=== PATIENT | female | born 2000 | race Two or more races ===

== ENCOUNTER 2020-12-31 12:30 | Inpatient (IN) | payer OTHER ==
[~2020-12-31] VITALS: Ht 162.6 cm; Wt 104.3 kg
[2021-01-09] MEDS ORDERED: IRON325 MG PO (22:37)
[2021-01-09] MEDS ORDERED: PRENATAL TABLE1 EAC1 PO (22:37)
[2021-01-09] MEDS ORDERED: TYLENOL325 MG PO (22:38)
== END 2021-01-23 15:43 | disposition home or self-care (01) | DRG 807 ==
LOC: SURH 01-16 12:30 → OB/GYN 01-21 06:05 → LDR 01-21 06:05 → OB/GYN 01-21 17:04
PROVIDERS: ADMIT Specialist; ATTEND Specialist
PROC: 10E0XZZ Delivery of Products of Conception, External Approach (ICD-10-PCS; principal; 2021-01-21)
PROC: 0W8NXZZ Division of Female Perineum, External Approach (ICD-10-PCS; 2021-01-21)
PROC: 10907ZC Drainage of Amniotic Fluid, Therapeutic from Products of Conception, Via Natural or Artificial Opening (ICD-10-PCS; 2021-01-21)
PROC: 3E033VJ Introduction of Other Hormone into Peripheral Vein, Percutaneous Approach (ICD-10-PCS; 2021-01-21)
PROC: 4A1HXFZ Monitoring of Products of Conception, Cardiac Rhythm, External Approach (ICD-10-PCS; 2021-01-21)
DX: O48.0 Post-term pregnancy (principal); O99.824 Streptococcus B carrier state complicating childbirth; O99.02 Anemia complicating childbirth; D64.9 Anemia, unspecified; Z37.0 Single live birth; Z3A.40 40 weeks gestation of pregnancy; Z86.16 Personal history of COVID-19

== ENCOUNTER 2021-01-09 22:21 | Inpatient (IN) | payer OTHER ==
[2021-01-09] MEDS ORDERED: PRENATAL TABLE1 EAC1 PO (22:37)
[2021-01-09] MEDS ORDERED: IRON325 MG PO (22:37)
[2021-01-09] MEDS ORDERED: TYLENOL325 MG PO (22:38)
== END 2021-01-10 15:29 | disposition left against medical advice (07) | DRG 831 ==
LOC: OBS/DEL 22:21 → LDR 01-10 11:31
PROVIDERS: ADMIT Specialist; ATTEND Specialist
PROC: 4A1HXFZ Monitoring of Products of Conception, Cardiac Rhythm, External Approach (ICD-10-PCS; principal; 2021-01-10)
PROC: BY4FZZZ Ultrasonography of Third Trimester, Single Fetus (ICD-10-PCS; 2021-01-10)
DX: O98.513 Other viral diseases complicating pregnancy, third trimester (principal); U07.1 COVID-19; R53.83 Other fatigue; Z53.29 Procedure and treatment not carried out because of patient's decision for other reasons; Z3A.39 39 weeks gestation of pregnancy